=== PATIENT | male | born 1950 | race Caucasian/White ===

== ENCOUNTER 2019-12-30 09:00 | Day surgery (SDC) | payer MEDICARE ==
[~2019-12-30 09:00] MED LIST: ATOR40TA75 PO; CYAN500T8 PO; D31000TA2 PO; FLOM0.4C39 PO; JANT2.5T PO; JANT5TAB PO; LISI-542 PO; METF10004 PO; OMEP1CAP73 PO
[2019-12-30] MEDS ORDERED: propofoL 200 MG/20 ML VIAL ONE ×2 (10:13→10:56)
--- NOTE | 2020-01-25 11:28 | ROOR ---
Patient Name: Hawk Bustamante Procedure Date: 12/30/2019 8:21 AM Date of : 1950 Age: 69 Room: [facility] Gender: Male Note Status: Networker Override Procedure: Colonoscopy Indications: High risk colon cancer surveillance: Personal history of colonic polyps Providers: Jonathan Erwin MD Referring MD: Rishi HA MD Requesting Provider: Medicines: Monitored Anesthesia Care Complications: No immediate complications. Procedure: Pre-Anesthesia Assessment: - Prior to the procedure, a History and Physical was performed, and patient medications and allergies were reviewed. The patient is competent. The risks and benefits of the procedure and the sedation options and risks were discussed with the patient. All questions were answered and informed consent was obtained. Patient identification and proposed procedure were verified by the physician, the nurse and the anesthesiologist in the procedure room. Mental Status Examination: alert and oriented. Airway Examination: normal oropharyngeal airway and neck mobility. Respiratory Examination: clear to auscultation. CV Examination: normal. Prophylactic Antibiotics: The patient does not require prophylactic antibiotics. Prior Anticoagulants: The patient has taken Coumadin (warfarin), last dose was 1 day prior to procedure. ASA Grade Assessment: II - A patient with mild systemic disease. After reviewing the risks and benefits, the patient was deemed in satisfactory condition to undergo the procedure. The anesthesia plan was to use monitored anesthesia care (MAC). Immediately prior to administration of medications, the patient was re-assessed for adequacy to receive sedatives. The heart rate, respiratory rate, oxygen saturations, blood pressure, adequacy of pulmonary ventilation, and response to care were monitored throughout the procedure. The physical status of the patient was re-assessed after the procedure. The Colonoscope was introduced through the anus and advanced to the terminal ileum, with identification of the appendiceal orifice and IC valve. The colonoscopy was performed without difficulty. The patient tolerated the procedure well. The quality of the bowel preparation was good. The terminal ileum, ileocecal valve, appendiceal orifice, and rectum were photographed. Scope insertion time was 3 minutes. Scope withdrawal time was 9 minutes. The total duration of the procedure was 14 minutes. Findings: The perianal and digital rectal examinations were normal. The terminal ileum appeared normal. A 10 mm polyp was found in the sigmoid colon. The polyp was sessile. The polyp was removed with a cold snare. Resection and retrieval were complete. To close a defect after polypectomy, two hemostatic clips were successfully placed. There was no bleeding at the end of the procedure. Multiple small and large-mouthed diverticula were found from sigmoid to descending colon. There was no evidence of diverticular bleeding. Non-bleeding external and internal hemorrhoids were found during retroflexion. The hemorrhoids were large. Impression: - The examined portion of the ileum was normal. - One 10 mm polyp in the sigmoid colon, removed with a cold snare. Resected and retrieved. Clips were placed. - Moderate diverticulosis from sigmoid to descending colon. There was no evidence of diverticular bleeding. - Non-bleeding external and internal hemorrhoids. Recommendation: - Patient has a contact number available for emergencies. The signs and symptoms of potential delayed complications were discussed with the patient. Return to normal activities tomorrow. Written discharge instructions were provided to the patient. - High fiber diet. - Continue present medications. - Continue Coumadin (warfarin) at prior dose. Refer to primary physician for further adjustment of therapy. - Await pathology results. - Repeat colonoscopy in 3 - 5 years for surveillance based on pathology results. - Use fiber, for example Citrucel, Fibercon, Konsyl or Metamucil. - Telephone GI clinic if symptomatic. - Telephone GI clinic for pathology results in 2 weeks. - Return to primary care physician. Jonathan Erwin MD 12/30/2019 11:04:43 AM Number of Addenda: 0 Note Initiated On: 12/30/2019 8:21 AM Estimated Blood Loss: Estimated blood loss was minimal.
== END 2019-12-30 11:20 | disposition home or self-care (01) ==
LOC: M SDC 09:00
PROVIDERS: ATTEND Internal Medicine Gastroenterology
DX: K63.5 Polyp of colon (principal); K64.8 Other hemorrhoids; K57.30 Diverticulosis of large intestine without perforation or abscess without bleeding; E11.9 Type 2 diabetes mellitus without complications; I48.91 Unspecified atrial fibrillation; K21.9 Gastro-esophageal reflux disease without esophagitis; I10 Essential (primary) hypertension; Z86.010 Personal history of colon polyps; Z08 Encounter for follow-up examination after completed treatment for malignant neoplasm; Z79.01 Long term (current) use of anticoagulants; Z79.84 Long term (current) use of oral hypoglycemic drugs; Z79.899 Other long term (current) drug therapy; Z88.0 Allergy status to penicillin

== ENCOUNTER → 2023-11-03 | Outpatient (CLI) | payer MEDICARE ==
[~2023-11-03] MED LIST changes: +CYAN500T14 PO; -CYAN500T8 PO; -D31000TA2 PO; -LISI-542 PO; +LISI5TAB11 PO; +VITA100093 PO
== END ==
LOC: M PLAIMG 13:21
PROVIDERS: ATTEND Internal Medicine Cardiovascular Disease
DX: I35.0 Nonrheumatic aortic (valve) stenosis (principal); I71.21 Aneurysm of the ascending aorta, without rupture; I27.20 Pulmonary hypertension, unspecified

== ENCOUNTER → 2024-12-14 | Outpatient (CLI) | payer MEDICARE ==
[~2024-12-14] MED LIST changes: -FLOM0.4C39 PO; +TAMS-18 PO
== END ==
LOC: M CARPUL 10:04
PROVIDERS: ATTEND Registered Nurse
DX: I71.21 Aneurysm of the ascending aorta, without rupture (principal); I35.0 Nonrheumatic aortic (valve) stenosis; I27.20 Pulmonary hypertension, unspecified; Z95.0 Presence of cardiac pacemaker

== ENCOUNTER → 2025-04-07 | Outpatient (CLI) | payer MEDICARE | LOC: M CARPUL 14:58 | PROVIDERS: ATTEND Internal Medicine Cardiovascular Disease | DX: I35.0 Nonrheumatic aortic (valve) stenosis (principal) ==

== ENCOUNTER → 2025-04-10 | Outpatient (CLI) | payer MEDICARE ==
[2025-04-10 14:15] LABS: BASO # 0.0 10^3/uL (0.0-0.2); BASO % 0.6 % (0.0-1.0); EOS # 0.1 10^3/uL (0.0-0.5); EOS % 2.5 % (0.0-3.0); LYMPH # 1.2 10^3/uL (1.5-5.0); LYMPH % 24.9 % (24.0-44.0); MONO # 0.5 10^3/uL (0.0-0.8); MONO % 9.5 % (2.0-8.0); NEUTROPHILS # 3.0 10^3/uL (1.5-8.5); NEUTROPHILS % 61.9 % (36.0-66.0); PLATELET COUNT, AUTOMATED 138 10^3/uL (150-450)
== END ==
LOC: M LAB 12:59
PROVIDERS: ATTEND Nurse Practitioner Family
DX: I35.0 Nonrheumatic aortic (valve) stenosis (principal)

== ENCOUNTER 2025-04-21 13:41 | Emergency (ER) | payer MEDICARE ==
[~2025-04-21] VITALS: Ht 188 cm; Wt 112.7 kg
[2025-04-21 15:02] LABS: PLATELET COUNT, AUTOMATED 171 10^3/uL (150-450)
[2025-04-21 15:19] LABS: CALCIUM LEVEL 8.6 MG/DL (8.3-10.6); CARBON DIOXIDE LEVEL 19.0 MMOL/L (20-31); CHLORIDE LEVEL 107.0 MMOL/L (98-107); CREATININE FOR GFR 1.02 MG/DL (0.70-1.30); GLOMERULAR FILTRATION RATE 78.1 (>42); MAGNESIUM LEVEL 2.1 MG/DL (1.8-2.4); POTASSIUM SERUM 4.9 MMOL/L (3.5-5.1); SODIUM LEVEL 139.0 MMOL/L (136-145)
[2025-04-21] MEDS ORDERED: ISOVUE-370 76% 100 ML VIAL As Ordered ONE (15:31)
[2025-04-21] MEDS: NS 500 ML IV ONE ×2 (15:54→17:17)
[2025-04-21 17:45] VITALS: BP 115/68; TEMP 97.2; O2SAT 93
[2025-04-21] MEDS ORDERED: MAGN400T2 PO (18:01)
[2025-04-21] MEDS ORDERED: FISH1CAP38 PO (18:01)
[2025-04-21] MEDS ORDERED: ASPI81CH33 PO (18:01)
[2025-04-21] MEDS ORDERED: XARE20TA (18:01)
[2025-04-21] MEDS ORDERED: FARX1TAB3 (18:01)
== END 2025-04-21 18:12 | disposition home or self-care (01) ==
LOC: M ED 13:41
DX: E86.0 Dehydration (principal); T88.7XXA Unspecified adverse effect of drug or medicament, initial encounter; I48.91 Unspecified atrial fibrillation; E11.9 Type 2 diabetes mellitus without complications; E78.5 Hyperlipidemia, unspecified; N40.0 Benign prostatic hyperplasia without lower urinary tract symptoms; Z79.82 Long term (current) use of aspirin; Z79.899 Other long term (current) drug therapy; Z88.0 Allergy status to penicillin; Z88.8 Allergy status to other drugs, medicaments and biological substances
CPT/HCPCS: 71045; 71275; 80048; 83735; 83880; 84443; 85027; 93005; 96360; 96361; 99285; Q9967